=== PATIENT | female | born 1960 | race Caucasian/White ===

== ENCOUNTER 2023-12-04 10:47 | Outpatient (REF) | payer OTHER, SELFPAY | END 2023-12-04 10:48 | disposition home or self-care (01) | LOC: HO.BBR 10:47 | PROVIDERS: PCP Family Medicine; Visit Provider Internal Medicine | DX: Z13.89 Encounter for screening for other disorder (principal) ==

== ENCOUNTER 2023-12-18 15:04 | Outpatient (REF) | payer OTHER, SELFPAY | END 2023-12-18 15:05 | disposition home or self-care (01) | LOC: HO.BBR 15:04 | PROVIDERS: PCP Family Medicine; Visit Provider Internal Medicine | DX: Z13.89 Encounter for screening for other disorder (principal) ==

== ENCOUNTER 2024-01-01 09:02 | Outpatient (REF) | payer OTHER, SELFPAY | END 2024-01-01 09:03 | disposition home or self-care (01) | LOC: HO.BBR 09:02 | PROVIDERS: PCP Family Medicine; Visit Provider Internal Medicine | DX: Z13.89 Encounter for screening for other disorder (principal) ==

== ENCOUNTER 2024-01-15 09:02 | Outpatient (REF) | payer OTHER, SELFPAY | END 2024-01-15 09:03 | disposition home or self-care (01) | LOC: HO.BBR 09:02 | PROVIDERS: PCP Family Medicine; Visit Provider Internal Medicine | DX: Z13.89 Encounter for screening for other disorder (principal) ==

== ENCOUNTER 2024-02-12 08:56 | Outpatient (REF) | payer OTHER, SELFPAY | END 2024-02-12 08:57 | disposition home or self-care (01) | LOC: HO.BBR 08:56 | PROVIDERS: PCP Family Medicine; Visit Provider Internal Medicine | DX: Z13.89 Encounter for screening for other disorder (principal) ==

== ENCOUNTER 2024-03-11 08:59 | Outpatient (REF) | payer OTHER, SELFPAY | END 2024-03-11 09:00 | disposition home or self-care (01) | LOC: HO.BBR 08:59 | PROVIDERS: PCP Family Medicine; Visit Provider Internal Medicine | DX: Z13.89 Encounter for screening for other disorder (principal) ==

== ENCOUNTER 2024-04-01 10:03 | Outpatient (REF) | payer OTHER, SELFPAY | END 2024-04-01 10:04 | disposition home or self-care (01) | LOC: HO.BBR 10:03 | PROVIDERS: PCP Family Medicine; Visit Provider Internal Medicine | DX: Z13.89 Encounter for screening for other disorder (principal) ==

== ENCOUNTER 2024-05-13 09:56 | Outpatient (REF) | payer OTHER, SELFPAY | END 2024-05-13 09:57 | disposition home or self-care (01) | LOC: HO.BBR 09:56 | PROVIDERS: PCP Family Medicine; Visit Provider Internal Medicine | DX: Z13.89 Encounter for screening for other disorder (principal) ==

== ENCOUNTER 2024-06-10 09:10 | Outpatient (REF) | payer OTHER, SELFPAY | END 2024-06-10 09:11 | disposition home or self-care (01) | LOC: HO.BBR 09:10 | PROVIDERS: PCP Family Medicine; Visit Provider Internal Medicine | DX: Z13.89 Encounter for screening for other disorder (principal) ==

== ENCOUNTER 2024-07-08 13:13 | Outpatient (REF) | payer OTHER, SELFPAY | END 2024-07-08 13:14 | disposition home or self-care (01) | LOC: HO.BBR 13:13 | PROVIDERS: PCP Family Medicine; Visit Provider Internal Medicine | DX: Z13.89 Encounter for screening for other disorder (principal) ==

== ENCOUNTER 2024-08-05 11:08 | Outpatient (REF) | payer OTHER, SELFPAY | END 2024-08-05 11:09 | disposition home or self-care (01) | LOC: HO.BBR 11:08 | PROVIDERS: PCP Family Medicine; Visit Provider Internal Medicine | DX: Z13.89 Encounter for screening for other disorder (principal) ==

== ENCOUNTER 2024-09-05 10:07 | Outpatient (REF) | payer OTHER, SELFPAY | END 2024-09-05 10:08 | disposition home or self-care (01) | LOC: HO.BBR 10:07 | PROVIDERS: PCP Family Medicine; Visit Provider Internal Medicine | DX: Z13.89 Encounter for screening for other disorder (principal) ==